=== PATIENT | male | born 1985 ===

== ENCOUNTER 2016-12-27 11:56 | Outpatient (CLI) | payer MEDICAID ==
[2016-12-27 12:07] LABS: Hematocrit 33.8 % (35.5-45.6); Hemoglobin 10.6 gm/dl (11.8-15.2); Mean Corpuscular HGB Conc 31 % (32-34); Mean Corpuscular Hemoglobin 28 pg (28-32); Mean Corpuscular Volume 90 fl (84-94); Platelet Count 721 K/mm3 (140-440); Red Blood Count 3.76 M/mm3 (3.65-5.03); White Blood Count 2.9 K/mm3 (4.5-11.0)
[2016-12-27 12:08] LABS: Red Cell Distribution Width 24.9 % (13.2-15.2)
[2016-12-27 12:27] LABS: Alanine Aminotransferase 14 units/L (7-56); Albumin 3.9 g/dL (3.9-5); Alkaline Phosphatase 153 units/L (35-129); Anion Gap 21 mmol/L; BUN/Creatinine Ratio 16.25; Bilirubin,Total 0.2 mg/dL (0.1-1.2); Blood Urea Nitrogen 13 mg/dL (9-20); Calcium 9.4 mg/dL (8.4-10.2); Carbon Dioxide 23 mmol/L (22-30); Chloride 102.5 mmol/L (98-107); Glucose 79 mg/dL (75-100); Potassium 4.2 mmol/L (3.6-5.0); Sodium 142 mmol/L (137-145)
[2016-12-27 12:54] LABS: Blastocytes % (Manual) 0 %
[2016-12-27 12:55] LABS: Acanthocytes Rare; Anisocytosis 1+; Burr Cells Few; Diff Status Complete; Elliptocytes Few; Helmet Cells Few; Ovalocytes 1+; Platelet Estimate Appears Increased; Poikilocytosis 1+; Tear Drop Cells Few
== END 2016-12-27 11:57 | disposition home or self-care (01) ==
LOC: LABHHL 11:56
DX: B20 Human immunodeficiency virus [HIV] disease (principal)
CPT/HCPCS: 36415; 80053; 85007; 85025